=== PATIENT | male | born 1955 | race Two or more races ===

== ENCOUNTER 2025-04-28 09:12 | Emergency (ER) | payer OTHER ==
[~2025-04-28] VITALS: Ht 182.9 cm; Wt 88.5 kg
[2025-04-28 09:17] VITALS: BP 104/68; O2SAT 96
[2025-04-28] MEDS ORDERED: CRESTOR40 MG PO (09:17)
[2025-04-28] MEDS ORDERED: FAMOTIDINE/PF 20 MG in 0.9 % SODIUM CHLORIDE 8 ML IV PUSH STA (09:27)
[2025-04-28] MEDS ORDERED: GUAIFENESIN/DEXTROMETHORPHAN 100MG/10ML BLIST.PACK PO ONE ×2 (09:30→09:52)
[2025-04-28] MEDS ORDERED: PIPERACILLIN/TAZOBACTAM SODIUM 3.375 GM VIAL IV ONE ×2 (09:30→09:51)
[2025-04-28] MEDS ORDERED: LEVALBUTEROL HCL 1.25 MG/3 ML SOLUTION IH SCH (09:30)
[2025-04-28] MEDS ORDERED: DIPHENOXYLATE HCL/ATROPINE 1 UDTAB TABLET PO ONE (09:30)
[2025-04-28] MEDS ORDERED: METHYLPREDNISOLONE SOD SUCC 125 MG VIAL IV ONE (09:30)
[2025-04-28] MEDS ORDERED: 0.9 % SODIUM CHLORIDE 1,000 ML IV SCH (09:30)
[2025-04-28] MEDS ORDERED: METHYLPREDNISOLONE SOD SUCC 125 MG VIAL ONE (09:51)
[2025-04-28] MEDS ORDERED: FAMOTIDINE/PF 20 MG/2 ML VIAL ONE (09:52)
[2025-04-28] MEDS ORDERED: WATER FOR INJ.,BACTERIOSTATIC 30 ML VIAL IJ ONE (09:53)
[2025-04-28] MEDS ORDERED: LEVALBUTEROL HCL 1.25 MG/3 ML SOLUTION IH ONE (10:06)
[2025-04-28 10:56] LABS: BASO % 0.1 % (0.1-1.2); EOS # 0.01 (0.04-0.54); EOS % 0.1 % (0.7-7.0); HEMATOCRIT 48.4 % (40.1-51.0); LYMPH % 24.8 % (19.3-53.1); MONO # 0.83 (0.24-0.82); MONO % 11.4 % (4.7-12.5); NEUT % 63.3 % (34.0-71.1); RED BLOOD COUNT 5.86 M/uL (4.63-6.08); RED CELL DISTRIBUTION WIDTH 13.3 % (11.6-14.4)
[2025-04-28 11:02] LABS: COVID-19 AG NEGATIVE (NEGATIVE)
[2025-04-28 11:04] LABS: PLATELET COUNT 112 K/uL (163-369)
[2025-04-28 11:06] LABS: INFLUENZA A AG NEGATIVE (NEGATIVE); INFLUENZA B AG NEGATIVE (NEGATIVE)
[2025-04-28 11:07] LABS: ALBUMIN 3.9 gm/dL (3.4-5.0); BILIRUBIN TOTAL 1.23 mg/dL (0.3-1.2); CALCIUM 9.2 mg/dL (8.5-10.1); CREATININE SERUM 0.91 mg/dL (0.70-1.30); GFR 82.61; GLOBULINA 3.6 G/DL (2.4-3.5); POTASSIUM 3.72 mEq/L (3.5-5.1); TOTAL PROTEIN 7.5 gm/dL (6.4-8.2)
[2025-04-28 11:08] LABS: PH,URINE 5.5 (5.0-8.0); URINE APPEARANCE Clear; URINE BILIRRUBIN Small (NEGATIVE); URINE BLOOD Negative; URINE COLOR Orange; URINE GLUCOSE Negative (NEGATIVE); URINE KETONE Trace (NEGATIVE); URINE LEUKOCYTE Trace; URINE NITRATE Positive; URINE PROTEIN 30 (NEGATIVE)
[2025-04-28 11:13] LABS: URINE BACTERIA 9.7 uL (0.0-1933); URINE EPITHELIAL CELLS 7.1 uL (0.0-38.8); URINE RBC 14.5 uL (0.0-20.8); URINE WBC 5.3 uL (0.0-23.2)
[2025-04-28 11:17] LABS: URINE CAST 0.88 uL (0.0-1.40)
== END 2025-04-28 13:13 | disposition home or self-care (01) ==
LOC: ER 10:36
PROVIDERS: General Practice
DX: J06.9 Acute upper respiratory infection, unspecified (principal); K52.9 Noninfective gastroenteritis and colitis, unspecified; Z20.822 Contact with and (suspected) exposure to COVID-19; R16.1 Splenomegaly, not elsewhere classified; N28.1 Cyst of kidney, acquired
CPT/HCPCS: 36415; 71250; 74176; 94640; 96365; 96366; 99284; J2543; J3490

== ENCOUNTER 2025-10-29 11:43 | Emergency (ER) | payer OTHER ==
[~2025-10-29] VITALS: Ht 177.8 cm; Wt 86.2 kg
[~2025-10-29 11:43] MED LIST: CRESTOR40 MG PO
[2025-10-29] MEDS ORDERED: METHYLPREDNISOLONE ACETATE 40 MG/ML VIAL IM ONE (12:00)
[2025-10-29] MEDS ORDERED: LIDOCAINE HCL 1% 10ML VIAL IJ ONE (12:15)
[2025-10-29 12:30] LABS: BASO % 0.2 % (0.1-1.2); EOS # 0.03 (0.04-0.54); EOS % 0.5 % (0.7-7.0); LYMPH # 1.67 (1.18-3.74); LYMPH % 30.4 % (19.3-53.1); MEAN PLATELET VOLUME 9.60 fl (9.4-12.4); MONO # 0.45 (0.24-0.82); MONO % 8.2 % (4.7-12.5); NEUT # 3.32 (1.56-6.13); NEUT % 60.5 % (34.0-71.1); RED CELL DISTRIBUTION WIDTH 14.0 % (11.6-14.4)
[2025-10-29 12:39] LABS: ERYTHROCYTE SEDIMENTATION RATE 4 mm/hr (0-20)
[2025-10-29 12:57] LABS: ALT/SGPT 29.0 U/L (12-78); AST/SGOT 20.0 U/L (15-37); BILIRUBIN TOTAL 0.77 mg/dL (0.3-1.2); BUN CREA RATIO 25.0 (7.0-25.0); CREATININE SERUM 0.72 mg/dL (0.70-1.30); GFR 107.92; GLOBULINA 2.9 G/DL (2.4-3.5); GLUCOSE FASTING 104.0 mg/dL (65-100); OSMOLALITY SERUM 287.0 MOSM/KG (275-295)
== END 2025-10-30 01:22 | disposition home or self-care (01) ==
LOC: ER 11:43
PROVIDERS: Internal Medicine
DX: M13.161 Monoarthritis, not elsewhere classified, right knee (principal); M25.561 Pain in right knee; M25.461 Effusion, right knee
CPT/HCPCS: 36415; 73560; 96372; 99283; J3490